=== PATIENT | female | born 1975 | race Caucasian/White ===

== ENCOUNTER 2016-09-16 13:31 | Emergency (ER) | payer OTHER ==
[2016-09-16 13:52] LABS: BASO % 0.3 % (0.1-1.2); EOS # 0.1 10_X3_uL (0.0-0.4); EOS % 0.7 % (0.7-5.8); GRAN # 8.3 10_X3_uL (1.6-6.1); GRAN % 70.6 % (34.0-71.1); HEMATOCRIT 42.1 % (34-45); HEMOGLOBIN 13.9 g/dL (11.2-15.7); LYMPH # 2.7 10_X3_uL (1.2-3.7); LYMPH % 22.8 % (19.3-51.7); MEAN CORPUSCULAR HEMOGLOBIN 28.9 pg (27.0-33.0); MEAN CORPUSCULAR VOLUME 87.5 fL (79-95); MEAN PLATELET VOLUME 10.2 fl (7.5-11.5); MONO # 0.7 10_X3_uL (0.2-0.9); MONO % 5.6 % (4.7-12.5); PLATELET COUNT 250 x10_3/uL (182-369); RED BLOOD COUNT 4.81 x10_6/uL (3.9-5.2); RED CELL DISTRIBUTION WIDTH 14.1 % (11.7-14.4); WHITE BLOOD COUNT 11.7 x10_3/uL (4.0-10.0)
[2016-09-16 14:09] LABS: BLOOD UREA NITROGEN 4 mg/dL (7-18); CALCIUM 8.9 mg/dL (8.7-10.7); CARBON DIOXIDE 22 mmol/L (21-32); CREATINE KINASE 271 U/L (21-215); CREATININE 0.7 mg/dL (0.6-1.3); GLUCOSE,RANDOM 133 mg/dL (70-99); POTASSIUM 4.1 mmol/L (3.5-5.1); SODIUM 135 mmol/L (136-145)
== END 2016-09-16 15:40 | disposition home or self-care (01) ==
LOC: ER 13:31
PROVIDERS: Internal Medicine
DX: R20.0 Anesthesia of skin (principal); I10 Essential (primary) hypertension; F17.210 Nicotine dependence, cigarettes, uncomplicated; Z98.51 Tubal ligation status; Z79.899 Other long term (current) drug therapy
CPT/HCPCS: 36415; 70450; 80048; 82550; 82553; 85025; 93005; 99284-25